=== PATIENT | female | born 1985 | race Two or more races ===

== ENCOUNTER 2018-11-23 04:05 | Inpatient (IN) | payer OTHER ==
[2018-11-23 05:29] VITALS: BMI 31.1
[2018-11-23] MEDS ORDERED: Lactated Ringer's 1,000 ML IV ONE (05:45)
[2018-11-23] MEDS ORDERED: Lactated Ringer's 1,000 ML IV SCH (05:45)
[2018-11-23 06:11] LABS: BASO % 0.4 % (0.0-2.0); EOS # 0.1 K/uL (0.0-0.7); EOS % 0.9 % (0.0-4.0); HEMOGLOBIN 12.6 g/dL (12.0-16.0); LYMPH # 2.5 K/uL (1.0-4.3); LYMPH % 25.6 % (20.0-40.0); MEAN CELL VOLUME 93.6 fl (81.0-99.0); MEAN CORPUSCULAR HGB CONC 33.1 g/dL (33.0-37.0); MEAN PLATELET VOLUME 10.8 fl (7.2-11.7); MONO # 1.1 K/uL (0.0-0.8); MONO % 11.5 % (0.0-10.0); NEUT % 61.6 % (50.0-75.0); NRBC % 0.1 % (0.0-0.0); RBC 4.08 Mil/uL (3.80-5.20); WHITE BLOOD COUNT 9.7 K/uL (4.8-10.8)
[2018-11-23] MEDS ORDERED: Fentanyl/Bupivacaine HCl 250 ML EPI ONE (07:46)
--- NOTE | 2018-11-23 07:52 | OBHP ---
Datetime: 11/23/2018 06:04 IP Adm Impression: Term, intrauterine ; Active labor; Ruptured Membranes IP Admit Plan: Admit to unit; Initiate labor protocol Admit Comment, IP Provider: 33 y/o female at 40.0 wk GA presents to [facility] due to ruptured mem brane at 3:30AM and consistent contractions. She endorses movements. She denies chest pain, hea dache, n/v. She denies urinary sx. She denies any complications during . OB: Dr. Yeager pmhx: hypothyroidism homeRx: vitamins, levothyroxine Famhx: non-contributory Socialhx: denies tobacco, etoh, recreational drug use Surghx: denies Allergies: NKDA ROS negative except per HPI Physical Exam: Gen: patient sitting up comfortably in bed, not in acute distress Heart: S1 S2 presents, RRR Lungs: normal breathing effort. Clear to auscultation bilaterally GI: gravid abdomen, soft, non-tender Extremities: No calf tenderness Cervical exam (By nurse Ferny): 3 cm dilated Assessment and Plan: 33 y/o female 40.0wk IUP presents with ROM; active labor. GBS neg, HIV neg, RPR neg Cervix 3cm dilated. [place]: regular contractions Q5 mins Admit patient to L_D CBC, type and screen 1L LR bouls, 1 L LR @ 125mL/hr Cont FHR monitor NPO May have epidural, anesthesiologist consulted Case discussed w/ attending Nannette Steve PGYI Addendum by Dr. Torres: I have evaluated the patient independently and I agree with the above Pelvic Type - PN: Not Done Extremities - PN: Normal Abdomen - PN: Normal Back - PN: Normal Breast - PN: Not Done Lungs - PN: Normal Heart - PN: Normal Thyroid - PN: Not Done Neurologic - PN: Not Done HEENT - PN: Not Done General - PN: Normal FHR - Baseline A Provider: 145 Membranes, Provider: Ruptured Contraction Comments Provider: Q5mins Gestation - Est Wks by US: 40.0 IP Hx Assessment: The History has been Reviewed and is Current EGA AdmitDate IP: 40.0 Vital Signs Provider: Reviewed; Within Normal Limits IP Chief Complaint: Uterine contractions; Suspected ruptured membranes NICHD Variability Prov Fetus A: Moderate 6-25bpm NICHD Accel Fetus A IP Provider: [id number] NICHD Decel Fetus A IP Provider: None Dilatation, Provider: 3 Effacement, Provider: 90 Station, Provider: -2 Genitourinary Exam: Not Done DTRs - PN: Not Done
[2018-11-23] MEDS ORDERED: Oxytocin 30 UNIT 30 UNITS/500 ML BAG IV ONE (11:19)
[2018-11-23] MEDS ORDERED: OXYTOCIN/0.9 % NS 20 UNIT/1,000 ML BAG IV ONE (11:20)
[2018-11-23] MEDS ORDERED: Oxycodone/Acetaminophen 5/325 mg Tab PO PRN ×4 (14:04→17:02)
[2018-11-23] MEDS ORDERED: Benzocaine/Menthol SPRAY TOP PRN ×2 (14:04→17:02)
--- NOTE | 2018-11-23 14:18 | OBDS ---
DELIVERY PERSONNEL Delivery Doctor: Jessie Houser MD, dr Credit Card Control Clerk: Kaylene Cali RN, castro rn Anesthesiologist: Sohan Villegas MD MATERNAL INFORMATION Delivery Anesthesia: Epidural Medications in Delivery: pitocin after placenta Maternal Complications: None Provider Comments: 33 year old admitted at 39.6 in labor. Progressed to normal spontaneous vagi nal delivery without augmentation at 40.0, delivery of live female infact, position TAYLOR over intact p erineum with epidural anesthesia. Infant was placed on maternal abdomen and delayed cord clamping was performed, Apgras 9_9, no excessive resuscitation was required. No meconium, nuchal cord x1. Spontan eous delivery of placenta with 3-vessel cord. EBL 250cc. Mom and baby are in stable condition and abner l be recovered in L_D. Corrine Boyle MD OB Fellow I was present at this delivery. (ES) LABOR SUMMARY EDC: 11/23/2018 00:00 No. Babies in Womb: 1 Attempted: No Labor Anesthesia: Epidural LABOR INFORMATION Onset of Labor: 11/23/2018 03:45 Complete Dilatation: 11/23/2018 12:15 Group B Beta Strep: Negative MEMBRANES Membranes Rupture Method: Spontaneous Rupture of Membranes: 11/23/2018 03:30 Amniotic Fluid Color: Clear Amniotic Fluid Amount: Moderate Amniotic Fluid Odor: Normal STAGES OF LABOR Stage 1 hrs: 8 Stage 1 min: 30 VAGINAL DELIVERY Episiotomy: None Laceration Extension: Second Degree Laceration Type: Vaginal INFORMATION BABY A Gestational Age at Delivery: 40.0 Gestational Status: Term Infant Outcome : Liveborn Infant Condition : Stable Infant Sex: Female WEIGHT/LENGTH BABY A Birthweight (gms): 3255 Infant Weight (lb): 7 Infant Weight (oz): 3 CORD INFORMATION BABY A Nuchal Cord : Around Neck x1, Loose (Annotations: Data stored by N on behalf of user)
[2018-11-24] MEDS: Levothyroxine 25 MCG TAB PO SCH (06:07)
[2018-11-24 08:36] LABS: BASO % 0.3 % (0.0-2.0); EOS # 0.1 K/uL (0.0-0.7); EOS % 0.7 % (0.0-4.0); HEMOGLOBIN 9.9 g/dL (12.0-16.0); LYMPH # 1.9 K/uL (1.0-4.3); LYMPH % 15.8 % (20.0-40.0); MEAN CELL VOLUME 93.6 fl (81.0-99.0); MEAN CORPUSCULAR HGB CONC 33.2 g/dL (33.0-37.0); MEAN PLATELET VOLUME 10.3 fl (7.2-11.7); MONO # 1.3 K/uL (0.0-0.8); MONO % 10.7 % (0.0-10.0); NEUT # 8.5 K/uL (1.8-7.0); NEUT % 72.5 % (50.0-75.0); RBC 3.18 Mil/uL (3.80-5.20); RED CELL DISTRIBUTION WIDTH 15.3 % (11.5-14.5); WHITE BLOOD COUNT 11.7 K/uL (4.8-10.8)
--- NOTE | 2018-11-24 13:13 | OBPPN ---
Datetime: 11/24/2018 12:03 PP Pain Prov: Within normal limits PP Nausea Prov: Denies PP Flatus Prov: Yes PP Breasts Prov: Normal PP Heart Prov: Normal PP Lungs Prov: Normal PP Abdomen/Uterus Prov: Normal PP Lochia Prov: Normal PP Vulva/Perineum Prov: Normal PP CVA Tenderness Prov: Normal PP Extremities Prov: Normal PP Progress Prov: PP Impression Prov: Normal progression PP Plan Prov:
--- NOTE | 2018-11-25 07:23 | OBPPN ---
Datetime: 11/25/2018 07:20 PP Pain Prov: Within normal limits PP Abdomen/Uterus Prov: Normal PP Lochia Prov: Normal PP Extremities Prov: Normal PP Progress Prov: Normal PP Impression Prov: Normal progression PP Plan Prov: Discharge PP Progress Note Prov: PPD 2 s/p , doing well, breast feeding Rx's motrin and Slow Fe given Discharge home today Vital Signs Provider PP: Reviewed
--- NOTE | 2018-11-25 07:25 | OBDCSUM ---
Datetime: 11/25/2018 07:23 Discharged to, Provider: Home Follow up at, Provider: Dr. Yeager Disch Instr Activity: Normal activity; May Shower Disch Instr Diet: Regular Discharge Instructions, Provider: Routine instructions given Discharge Diagnosis, Provider: Term Delivered Discharge Time: 11/25/2018 07:23 Follow up in weeks, Provider: 6 weeks Disch Activity Restrictions: No exercising; No lifting; Nothing in vagina - [place], tampons, do tariq
[2018-11-25] MEDS: Levothyroxine 25 MCG TAB PO SCH (07:48)
[2018-11-25 23:15] VITALS: BP 115/76; PULSE 100; RESP 20; TEMP 98.8
== END 2018-11-25 17:25 | disposition home or self-care (01) | DRG 807 ==
LOC: H.EROB2 04:05 → H.L&D 05:45 → H.OB/GYN 16:45
PROVIDERS: ADMIT Obstetrics & Gynecology; ATTEND Obstetrics & Gynecology
PROC: 10E0XZZ Delivery of Products of Conception, External Approach (ICD-10-PCS; principal; 2018-11-23)
PROC: 0KQM0ZZ Repair Perineum Muscle, Open Approach (ICD-10-PCS; 2018-11-23)
PROC: 4A1HXCZ Monitoring of Products of Conception, Cardiac Rate, External Approach (ICD-10-PCS; 2018-11-23)
DX: O99.284 Endocrine, nutritional and metabolic diseases complicating childbirth (principal); Z37.0 Single live birth; E03.9 Hypothyroidism, unspecified; O69.81X0 Labor and delivery complicated by cord around neck, without compression, not applicable or unspecified; O70.1 Second degree perineal laceration during delivery; Z3A.40 40 weeks gestation of pregnancy